=== PATIENT | male | born 1970 | race American Indian/Alaskan Native ===

== ENCOUNTER 2019-06-19 10:14 | Emergency (ER) | payer MEDICARE ==
[2019-06-19 10:29] VITALS: BP 128/73
--- NOTE | 2019-06-19 11:42 | Emergency Department Report ---
ED General Adult HPI - General Chief complaint: Upper Respiratory Infection Stated complaint: BOIL CHEST PAIN/ Time Seen by Provider: 06/19/19 11:33 Source: patient Mode of arrival: Ambulatory Limitations: No Limitations - History of Present Illness Initial comments: This is a 48 yo transgender patient male to female who presents with several primary care concerns. She requests refill of spironolactone. She desires antibiotic for buttock abscess. She also has productive cough. No pain. NO fever. HIV+ undetectable viral load. Recently moved from [facility]. Has established care with infectious disease doctor at [facility], [facility]. First appointment June 27. -: Gradual, week(s) (several) Location: chest Severity scale (0 -10): 7 Consistency: constant Improves with: none Worsens with: none Associated Symptoms: denies other symptoms - Related Data Home Medications Medication Instructions Recorded Confirmed Last Taken Divalproex Dr [Depakote] 100 mg PO BID 10/02/13 10/02/13 10/02/13 08:42 100 Estradiol 2 mg PO DAILY 10/02/13 10/02/13 10/02/13 06:00 2 Finasteride [Propecia] 1 mg PO QDAY 10/02/13 10/02/13 10/02/13 06:00 1 PARoxetine [Paxil] 20 mg PO DAILY 10/02/13 10/02/13 10/02/13 08:43 20 Spironolactone [Aldactone] 300 mg PO QDAY 10/02/13 10/02/13 10/02/13 08:43 300 Trazodone HCl [Trazodone] 50 mg PO PRN 10/02/13 10/02/13 Unknown hydrOXYzine PAMOATE (NF) [Vistaril] 50 mg TID 10/02/13 10/02/13 10/02/13 Previous Rx's Medication Instructions Recorded Last Taken Type Ibuprofen [Motrin] 800 mg PO TID PRN #14 tablet 10/02/13 Unknown Rx Sulfamethoxazole/Trimethoprim 1 each PO BID #14 tablet 10/02/13 Unknown Rx [Bactrim DS] Clindamycin [Clindamycin CAP] 300 mg PO Q8H 7 Days #21 cap 06/19/19 Unknown Rx Spironolactone [Aldactone] 200 mg PO QDAY 30 Days #60 tablet 06/19/19 Unknown Rx Allergies Allergy/AdvReac Type Severity Reaction Status Date / Time No Known Allergies Allergy Verified 06/29/14 15:12 ED Review of Systems ROS: Stated complaint: BOIL CHEST PAIN/ Other details as noted in HPI Comment: All other systems reviewed and negative Constitutional: denies: fever, malaise Skin: rash, lesions ED Past Medical Hx - Past Medical History Previous Medical History?: Yes Hx HIV: Yes Additional medical history: HIV, Hepatiti C positive - Surgical History Past Surgical History?: No - Social History Smoking Status: Former Smoker Substance Use Type: None - Medications Home Medications: Home Medications Medication Instructions Recorded Confirmed Last Taken Type Divalproex Dr [Depakote] 100 mg PO BID 10/02/13 10/02/13 10/02/13 08:42 History 100 Estradiol 2 mg PO DAILY 10/02/13 10/02/13 10/02/13 06:00 History 2 Finasteride [Propecia] 1 mg PO QDAY 10/02/13 10/02/13 10/02/13 06:00 History 1 Ibuprofen [Motrin] 800 mg PO TID PRN #14 tablet 10/02/13 Unknown Rx PARoxetine [Paxil] 20 mg PO DAILY 10/02/13 10/02/13 10/02/13 08:43 History 20 Spironolactone [Aldactone] 300 mg PO QDAY 10/02/13 10/02/13 10/02/13 08:43 History 300 Sulfamethoxazole/Trimethoprim 1 each PO BID #14 tablet 10/02/13 Unknown Rx [Bactrim DS] Trazodone HCl [Trazodone] 50 mg PO PRN 10/02/13 10/02/13 Unknown History hydrOXYzine PAMOATE (NF) [Vistaril] 50 mg TID 10/02/13 10/02/13 10/02/13 History Clindamycin [Clindamycin CAP] 300 mg PO Q8H 7 Days #21 cap 06/19/19 Unknown Rx Spironolactone [Aldactone] 200 mg PO QDAY 30 Days #60 tablet 06/19/19 Unknown Rx ED Physical Exam - General Limitations: No Limitations General appearance: alert, in no apparent distress - Head Head exam: Present: atraumatic, normocephalic - Eye Eye exam: Present: normal appearance - ENT ENT exam: Present: mucous membranes moist - Neck Neck exam: Present: normal inspection, full ROM - Respiratory Respiratory exam: Present: normal lung sounds bilaterally. Absent: respiratory distress - Cardiovascular Cardiovascular Exam: Present: regular rate, normal rhythm. Absent: systolic murmur, diastolic murmur, rubs, gallop - GI/Abdominal GI/Abdominal exam: Present: soft, normal bowel sounds. Absent: distended, tenderness, guarding, rebound - Rectal Rectal exam: Present: deferred - exam: Present: other (deferred) - Extremities Exam Extremities exam: Present: normal inspection - Back Exam Back exam: Present: normal inspection - Neurological Exam Neurological exam: Present: alert, oriented X3 - Psychiatric Psychiatric exam: Present: normal affect, normal mood - Skin Skin exam: Present: warm, dry, intact, normal color. Absent: rash ED Course Vital Signs 06/19/19 06/19/19 10:28 11:07 Temperature 97.8 F Pulse Rate 101 H Respiratory 16 15 Rate Blood Pressure 128/73 [Right] O2 Sat by Pulse 99 Oximetry ED Medical Decision Making - Medical Decision Making 1. I prescribed 30 day prescription of spironolactone according to patient's request. Spironolactone is an accompaniment to patient's hormone therapy. 2. Patient politely declined evaluation of buttock abscess. Prescribed clindamycin 3. Chest congestion with normal lung exam given reassurance. Critical care attestation.: If time is entered above; I have spent that time in minutes in the direct care of this critically ill patient, excluding procedure time. ED Disposition Clinical Impression: Medication refill, Abscess, Acute bronchitis Disposition: - TO HOME OR SELFCARE Is pt being admited?: No Does the pt Need Aspirin: No Condition: Stable Instructions: Acute Bronchitis (ED), Abscess (ED) Prescriptions: Spironolactone [Aldactone] 200 mg PO QDAY 30 Days #60 tablet Clindamycin [Clindamycin CAP] 300 mg PO Q8H 7 Days #21 cap Referrals: FORREST ESQUIVEL MD [Staff Physician] - 3-5 Days
== END 2019-06-19 12:35 | disposition home or self-care (01) ==
LOC: ED 10:14
DX: J20.9 Acute bronchitis, unspecified (principal); L02.31 Cutaneous abscess of buttock; Z76.0 Encounter for issue of repeat prescription; Z87.891 Personal history of nicotine dependence; Z79.899 Other long term (current) drug therapy
CPT/HCPCS: 99282

== ENCOUNTER 2021-07-26 13:40 | Outpatient (CLI) | payer MEDICARE | END 2021-07-26 13:41 | disposition home or self-care (01) | LOC: LAB 13:40 | PROVIDERS: ATTEND Student in an Organized Health Care Education/Training Program | DX: F31.9 Bipolar disorder, unspecified (principal) | CPT/HCPCS: 36415; 80164 ==